=== PATIENT | female | born 1990 | race Hispanic/Latino ===

== ENCOUNTER 2016-05-09 22:33 | Emergency (ER) | payer SELFPAY ==
[~2016-05-09] VITALS: Ht 149.9 cm; Wt 46.2 kg
[~2016-05-09 22:33] MED LIST: BACTRIM DS1 TAB PO; CIPROFLOXACN500 MG PO
[2016-05-10] MEDS ORDERED: STERAPRED DS10 MG PO (00:52)
[2016-05-10 01:22] VITALS: BP 108/66
== END 2016-05-10 01:29 | disposition home or self-care (01) | DRG 607 ==
LOC: ED 22:33
DX: L50.0 Allergic urticaria (principal); Z87.440 Personal history of urinary (tract) infections

== ENCOUNTER 2016-06-23 08:27 | Observation (INO) | payer SELFPAY ==
[~2016-06-23] VITALS: Ht 149.9 cm; Wt 45.0 kg
[~2016-06-23 08:27] MED LIST changes: +STERAPRED DS10 MG PO
[2016-06-23 09:10] LABS: URINE BILIRUBIN - DIPSTICK NEGATIVE (NEGATIVE); URINE BLOOD DIPSTICK SMALL (NEGATIVE); URINE CLARITY CLEAR; URINE COLOR YELLOW; URINE GLUCOSE - DIPSTICK NEGATIVE (NEGATIVE); URINE KETONE >=80 mg/dL (NEGATIVE); URINE LEUK ESTERASE NEGATIVE (NEGATIVE); URINE NITRITE - DIPSTICK NEGATIVE (Negative); URINE PH 5.5 (4.5-8.0); URINE PROTEIN - DIPSTICK 30 mg/dL (NEG-TRACE); URINE SPECIFIC GRAVITY >=1.030
[2016-06-23 09:19] LABS: HEMATOCRIT 42.1 % (37.0-47.0); HEMOGLOBIN 14.4 g/dl (12.0-16.0); IMMATURE GRANULOCYTES 0.4 % (0.0-1.0); MEAN CELL VOLUME 91.5 fL CALC (80.0-100.0); MEAN CORPUSCULAR HGB 31.3 pG CALC (26.0-32.0); MEAN CORPUSCULAR HGB CONC 34.2 g/L CALC (32.0-36.0); NEUT# 7.69 thou/uL (2.00-7.15); RED BLOOD COUNT 4.6 mill/uL (4.20-5.60)
[2016-06-23 09:26] LABS: ALKALINE PHOSPHATASE 68 u/l (38-126); ANION GAP 25 (6-22 (CALC)); BILIRUBIN, TOTAL 1.1 mg/dL (0.0-1.4); BUN 12 mg/dL (7-17); BUN/CREATININE RATIO 24 (12-20 (CALC)); CALCIUM 9.4 mg/dL (8.4-10.2); CARBON DIOXIDE 14 mmol/l (22-30); CHLORIDE 101 mmol/l (95-108); CREATININE 0.5 mg/dL (0.5-1.0); GFR > 60 ML/MIN (>=60 (CALC)); GFR FOR AFR.AMER. > 60 ML/MIN (>=60 (CALC)); GLUCOSE 122 mg/dL (65-105); POTASSIUM 4.1 mmol/l (3.5-5.1); SGOT/AST 20 u/l (14-36); SGPT/ALT 21 u/l (9-52); SODIUM 136 mmol/l (137-146); TOTAL PROTEIN 8.5 g/dL (6.3-8.2)
[2016-06-23 09:33] LABS: URINE SQUAMOUS EPITHELIAL CELL FEW EPI/hpf (0-FEW)
[2016-06-23 10:17] LABS: BETA-HCG, QUANT(RESULT NUMBER) 21785 mIU/mL
[2016-06-23 11:20] LABS: ANION GAP 22 (6-22 (CALC)); BUN 12 mg/dL (7-17); BUN/CREATININE RATIO 22 (12-20 (CALC)); CALCIUM 9.4 mg/dL (8.4-10.2); CARBON DIOXIDE 16 mmol/l (22-30); CHLORIDE 100 mmol/l (95-108); CREATININE 0.5 mg/dL (0.5-1.0); GFR > 60 ML/MIN (>=60 (CALC)); GFR FOR AFR.AMER. > 60 ML/MIN (>=60 (CALC)); GLUCOSE 104 mg/dL (65-105); SODIUM 134 mmol/l (137-146)
[2016-06-23 14:00] LABS: ANION GAP 16 (6-22 (CALC)); BUN 8 mg/dL (7-17); BUN/CREATININE RATIO 18 (12-20 (CALC)); CALCIUM 8.2 mg/dL (8.4-10.2); CARBON DIOXIDE 17 mmol/l (22-30); CHLORIDE 106 mmol/l (95-108); CREATININE 0.4 mg/dL (0.5-1.0); GFR > 60 ML/MIN (>=60 (CALC)); GFR FOR AFR.AMER. > 60 ML/MIN (>=60 (CALC)); GLUCOSE 76 mg/dL (65-105); POTASSIUM 3.8 mmol/l (3.5-5.1); SODIUM 135 mmol/l (137-146)
[2016-06-23 15:17] VITALS: BP 122/78
[2016-06-23 19:15] VITALS: BP 109/67
[2016-06-24 04:21] VITALS: BP 100/64
[2016-06-24 07:20] LABS: ANION GAP 13 (6-22 (CALC)); BUN 3 mg/dL (7-17); BUN/CREATININE RATIO 8 (12-20 (CALC)); CALCIUM 8.3 mg/dL (8.4-10.2); CARBON DIOXIDE 20 mmol/l (22-30); CHLORIDE 106 mmol/l (95-108); CREATININE 0.4 mg/dL (0.5-1.0); GFR > 60 ML/MIN (>=60 (CALC)); GFR FOR AFR.AMER. > 60 ML/MIN (>=60 (CALC)); GLUCOSE 70 mg/dL (65-105); POTASSIUM 3.3 mmol/l (3.5-5.1); SODIUM 135 mmol/l (137-146)
[2016-06-24 08:30] VITALS: BP 103/57
[2016-06-24] MEDS ORDERED: ZOFRAN4 MG/TAB PO (11:06)
== END 2016-06-24 11:50 | disposition home or self-care (01) | DRG 781 ==
LOC: ENPENDDIS → ED 08:27 → ED-I 14:28 → ED 14:38 → MS2 14:39
PROVIDERS: Emergency Medicine; ADMIT Internal Medicine; ATTEND Internal Medicine
DX: O21.1 Hyperemesis gravidarum with metabolic disturbance (principal); Z87.440 Personal history of urinary (tract) infections; Z3A.01 Less than 8 weeks gestation of pregnancy
CPT/HCPCS: G0378

== ENCOUNTER 2016-06-26 22:46 | Emergency (ER) | payer SELFPAY ==
[~2016-06-26] VITALS: Ht 149.9 cm; Wt 43.6 kg
[~2016-06-26 22:46] MED LIST changes: +ZOFRAN4 MG/TAB PO
[2016-06-27 01:17] LABS: HEMATOCRIT 38.7 % (37.0-47.0); HEMOGLOBIN 14.1 g/dl (12.0-16.0); IMMATURE GRANULOCYTES 0.4 % (0.0-1.0); MEAN CELL VOLUME 88.2 fL CALC (80.0-100.0); MEAN CORPUSCULAR HGB 32.1 pG CALC (26.0-32.0); MEAN CORPUSCULAR HGB CONC 36.4 g/L CALC (32.0-36.0); NEUT# 5.86 thou/uL (2.00-7.15); RED BLOOD COUNT 4.39 mill/uL (4.20-5.60)
[2016-06-27 01:33] LABS: ALBUMIN 4.7 g/dL (3.2-5.0); ALKALINE PHOSPHATASE 55 u/l (38-126); AMYLASE < 30 u/l (30-110); ANION GAP 18 (6-22 (CALC)); BILIRUBIN, TOTAL 0.9 mg/dL (0.0-1.4); BUN 10 mg/dL (7-17); BUN/CREATININE RATIO 21 (12-20 (CALC)); CALCIUM 9.7 mg/dL (8.4-10.2); CARBON DIOXIDE 24 mmol/l (22-30); CHLORIDE 101 mmol/l (95-108); CREATININE 0.5 mg/dL (0.5-1.0); GFR > 60 ML/MIN (>=60 (CALC)); GFR FOR AFR.AMER. > 60 ML/MIN (>=60 (CALC)); GLUCOSE 91 mg/dL (65-105); LIPASE 30 u/l (23-300); POTASSIUM 3.4 mmol/l (3.5-5.1); SGOT/AST 20 u/l (14-36); SGPT/ALT 26 u/l (9-52); SODIUM 140 mmol/l (137-146); TOTAL PROTEIN 7.5 g/dL (6.3-8.2)
[2016-06-27 02:38] LABS: URINE BILIRUBIN - DIPSTICK NEGATIVE (NEGATIVE); URINE BLOOD DIPSTICK NEGATIVE (NEGATIVE); URINE CLARITY CLEAR; URINE COLOR YELLOW; URINE GLUCOSE - DIPSTICK NEGATIVE (NEGATIVE); URINE KETONE >=80 mg/dL (NEGATIVE); URINE LEUK ESTERASE NEGATIVE (NEGATIVE); URINE NITRITE - DIPSTICK NEGATIVE (Negative); URINE PROTEIN - DIPSTICK NEGATIVE (NEG-TRACE); URINE SPECIFIC GRAVITY 1.025
[2016-06-27] MEDS ORDERED: PHENERGAN25 MG/TAB PO (02:38)
[2016-06-27 02:44] VITALS: BP 111/97
== END 2016-06-27 02:45 | disposition home or self-care (01) | DRG 781 ==
LOC: ED 22:46
PROVIDERS: Emergency Medicine
DX: O21.9 Vomiting of pregnancy, unspecified (principal); Z3A.01 Less than 8 weeks gestation of pregnancy

== ENCOUNTER 2017-02-11 15:54 | Inpatient (IN) | payer BC, OTHER ==
[~2017-02-11] VITALS: Ht 149.9 cm; Wt 59.0 kg
[2017-02-11] VITALS (11 sets, daily range): BP systolic 108–126; BP diastolic 56–91
[~2017-02-11 15:54] MED LIST changes: +FERR SULFATE325 MG PO; +PHENERGAN25 MG/TAB PO; +PRE-NATAL PO
--- NOTE | 2017-02-11 16:00 | NUR ---
PT IS G1PO WITH MARIO OF 02/18/17. PT C/O OF CONTRACTIONS THAT GOT STRONGER AT 12PM TODAY. PAIN IS 4/10 IN LOWER ABDOMEN AND BACK. PT DENIES BLEEDING OR FLUIDS LEAKING. UA/DOA OBTAINED.
[2017-02-11 16:13] LABS: URINE BILIRUBIN - DIPSTICK NEGATIVE (NEGATIVE); URINE BLOOD DIPSTICK NEGATIVE (NEGATIVE); URINE COLOR YELLOW; URINE GLUCOSE - DIPSTICK NEGATIVE (NEGATIVE); URINE KETONE NEGATIVE (NEGATIVE); URINE LEUK ESTERASE NEGATIVE (Negative); URINE NITRITE - DIPSTICK NEGATIVE (Negative); URINE PROTEIN - DIPSTICK NEGATIVE (NEG-TRACE); URINE UROBILINOGEN - DIPSTICK 0.2 E.U./dL (0.2)
--- NOTE | 2017-02-11 16:30 | NUR ---
SVE DONE BY MYSELF. UNSURE OF FINDINGS. SVE CONFIRMED BY [facility] RN. CX 1-2CM DILATED, APPROXIMATELY 80% EFFACED, VTX AT STATION -1. MEMBRANES INTACT. NO BLOOD ON GLOVED FINGER. MD TO BE NOTIFIED.
[2017-02-11 16:32] LABS: BARBITURATES NEGATIVE (NEGATIVE); COCAINE NEGATIVE (NEGATIVE); METHADONE NEGATIVE (NEGATIVE); OXCYCODONE NEGATIVE (NEGATIVE); TETRAHYDROCANNABIONOL NEGATIVE (NEGATIVE); TRICYLIC ANTIDEPRESSANTS NEGATIVE (NEGATIVE)
--- NOTE | 2017-02-11 16:45 | NUR ---
DR MATOS NOTIFIED VIA CELLPHONE OF THE ABOVE. WILL COME IN TO SEE PATIENT. PATIENT MADE AWARE OF PLAN OF CARE.
[2017-02-11 17:13] LABS: URINE CLARITY CLEAR
--- NOTE | 2017-02-11 17:15 | NUR ---
DR. MATOS AT BEDSIDE. SVE DONE BY . MD DISCUSSED PLAN OF CARE WITH PT AND PT VERBALIZED UNDERSTANDING. PT MOM IN ROOM. PT DENIES ANY NEEDS AT THIS TIME.
[2017-02-11 18:28] LABS: ALBUMIN 3.8 g/dL (3.2-5.0); ALKALINE PHOSPHATASE 281 u/l (38-126); ANION GAP 16 (6-22 (CALC)); BILIRUBIN, TOTAL 0.2 mg/dL (0.0-1.4); BUN 11 mg/dL (7-17); BUN/CREATININE RATIO 21 (12-20 (CALC)); CALCIUM 9.7 mg/dL (8.4-10.2); CARBON DIOXIDE 22 mmol/l (22-30); CHLORIDE 104 mmol/l (95-108); CREATININE 0.5 mg/dL (0.5-1.0); GFR > 60 ML/MIN (>=60 (CALC)); GFR FOR AFR.AMER. > 60 ML/MIN (>=60 (CALC)); GLUCOSE 85 mg/dL (65-105); POTASSIUM 4.1 mmol/l (3.5-5.1); SGOT/AST 25 u/l (14-36); SGPT/ALT 22 u/l (9-52); SODIUM 138 mmol/l (137-146); TOTAL PROTEIN 6.7 g/dL (6.3-8.2)
--- NOTE | 2017-02-11 18:28 | NUR ---
ENCOURAGE PT TO AMBULATE IN THE HALLWAYS AND PT STATED MAYBE LATER. PT STATED PAIN IS 5/10. PT DENIES ANY NEEDS AT THIS TIME. REPORT READY FOR ONCOMING SHIFT.
--- NOTE | 2017-02-11 19:00 | NUR ---
REPORT RECIEVED FROM Rachna WHEELER RN. PATIENT SITTING UP IN BED AT THIS TIME, ORDERED BOLUS CONTINUES TO INFUSE. CALL LIGHT WITHIN REACH, PATIENT DENIES ANY CURRENT NEEDS.
[2017-02-11 19:01] LABS: HEMATOCRIT 36.8 % (37.0-47.0); HEMOGLOBIN 12.8 g/dl (12.0-16.0); IMMATURE GRANULOCYTES 0.3 % (0.0-1.0); MEAN CELL VOLUME 92.7 fL CALC (80.0-100.0); MEAN CORPUSCULAR HGB 32.2 pG CALC (26.0-32.0); MEAN CORPUSCULAR HGB CONC 34.8 g/L CALC (32.0-36.0); NEUT# 6.2 thou/uL (2.00-7.15); RED BLOOD COUNT 3.97 mill/uL (4.20-5.60); RED CELL DISTRI WIDTH 13.4 % (11.5-15.5)
--- NOTE | 2017-02-11 19:24 | NUR ---
THIS RN SUMMONED BY PATIENT TO ROOM, UP TO BATHROOM INDEPENDENTLY AT THIS TIME.
--- NOTE | 2017-02-11 20:20 | NUR ---
PATIENT MOTHER PRESENT IN TRIAGE ROOM AT THIS TIME FOR SUPPORT. PATIENT UP WITH MINIMAL ASSIST TO ROCKING CHAIR AT BEDSIDE, PATIENT ROCKING THROUGH CONTRACTIONS, MATERNAL HR NOTED DURING VERIFIED WITH PULSE OX.
--- NOTE | 2017-02-11 20:30 | NUR ---
DR MATOS PRESENT ON UNIT TO CHECK ON PATIENT. UPDATED ON MOST RECENT SVE, EFM AND PATIENT VS. ORDERS RECEIVED FOR VISTARIL 25 MG PO X 1, INTERMITTENT MONITORING AND OK FOR PAIN MEDICATION. PATIENT CONTINUES TO DENY ANY MEDICATION INTERVENTIONS FOR REPORTED PAIN. GIVEN WARM COMPRESS FOR COMFORT. WILL CONTINUE TO MONITOR.
--- NOTE | 2017-02-11 20:53 | NUR ---
PATIENT UP TO BATHROOM AT THIS TIME INDEPENDENTLY TO USE THE RESTROOM.
--- NOTE | 2017-02-11 21:40 | NUR ---
FATHER OF BABY NOW PRESENT AT BEDSIDE FOR SUPPORT.
--- NOTE | 2017-02-11 23:36 | NUR ---
PATIENT TURNS TO LEFT SIDE AT THIS TIME, REPORTING PAIN LEVEL IS STILL 7/10 AND WOULD LIKE PRN MEDICATION FOR RELIEF. MOTHER AND FATHER OF BABY REMAIN AT BEDSIDE FOR SUPPORT. PATIENT ENCOURAGED TO DEEP BREATHE WELL.
[2017-02-12] VITALS (47 sets, daily range): BP systolic 106–140; BP diastolic 55–83
--- NOTE | 2017-02-12 02:02 | NUR ---
PATIENT REPORTING NUBAIN WAS EFFECTIVE FOR PAIN RELIEF. REQUESTING ASSITANCE TO RESTROOM.
--- NOTE | 2017-02-12 05:26 | NUR ---
DR MATOS UPDATED REGARDING PATIENT LAST SVE, EFM AND SPACING OF CONTRACTIONS. STATES WILL BE IN SHORTLY AND WILL COMPLETE THE NEXT SVE AT THAT TIME. WILL CONTINUE TO MONITOR.
--- NOTE | 2017-02-12 06:00 | NUR ---
PATIENT REPORTING SOME "PRESSURE" RATING THE DISCOMFORT 8/10. SVE COMPLETED WITH A RESULT OF 4100/0, DR MATOS PRESENT AT NURSE'S STATION, UPDATED ON PATIENT REPORT OF PRESSURE, SVE, AND SROM OF 0600 SMALL AMT OF CLEAR FLUID. NO NEW ORDERS RECEIVED.
--- NOTE | 2017-02-12 06:30 | NUR ---
DR WALTERSCU IN TO SEE PATIENT SHE IS REQUESTING EPIDURAL FOR PAIN MANAGEMENT. DISCUSSES WITH PATIENT WOULD LIKE HER TO BE 5-6CM BEFORE EPIDURAL PLACEMENT. PATIENT VERBALIZES UNDERSTANDING, DR EVANS TO BE BACK TO REEVALUATE PATIENT AT 0800, WILL RECIEVE PAUL FOR COMFORT AT THIS TIME.
--- NOTE | 2017-02-12 07:00 | NUR ---
0650: REPORT RECEIVED BY KATHARINE FALL. 0700: PT IS SLEEPING IN BED ON HER LEFT SIDE WITH NO S/S OF DISTRESS NOTED. MOM IN ROOM.
--- NOTE | 2017-02-12 07:56 | NUR ---
PT IS RESTING IN LEFT SIDE. ENCOURAGE PT TO GET OOB TO VOID. PT STATED SHE DID NOT HAVE TO VOID AT THIS TIME. PALPATED ABDOMEN AND CONTRACTION FELT MODERATE. PT STATED PAIN IS A 9/10 IN LOWER ABDOMEN. PT DENIES ANY NEEDS AT THIS TIME. PT MOM IN ROOM.
--- NOTE | 2017-02-12 09:15 | NUR ---
0915: PT STATED THAT SHE IS HAVING PRESURE. SVE DONE . PT REFUSED PAIN MEDICATION. PT STATED THAT CONSTRACTIONS WOULD SLOW DOWN. PT STATED THAT SHE WANTED TO WAIT. PT MOM IN ROOM FOR SUPPORT.
--- NOTE | 2017-02-12 09:20 | NUR ---
PT IS IN HER RIGHT SIDE. PT TAKES DEEP BREATHS DURING CONTRACTIONS AND PT MOM RUBS PT BACK. PT DENIES ANY NEEDS AT THIS TIME.
--- NOTE | 2017-02-12 09:34 | NUR ---
DR. MATOS AT BEDSIDE. SVE DONE BY /-1-0.
--- NOTE | 2017-02-12 10:35 | NUR ---
1031: PT OOB TO VOID. PT HAVING NORMAL SHOW AND LEAKING CLEAR FLUIDS. 1035: PT SITTING IN BIRTHING BALL ROCKING SIDE TO SIDE. PT MOM IN ROOM FOR SUPPORT. ICE CHIPS GIVEN. PT DENIES ANY OTHER NEEDS.
--- NOTE | 2017-02-12 11:16 | NUR ---
1100: PT IN THE BIRTHING BALL AND MOVING SIDE TO SIDE. FHR NOT TRACNING DUE TO PT MOVING. 1116: PT BACK IN BED TO BE ABLE TO TRACE FHR. PT DENIES ANY NEEDS AT THIS TIME. PT MOM AND S/O IN ROOM.
--- NOTE | 2017-02-12 12:38 | NUR ---
1230: PT OOB TO VOID. 1238: AT BEDSIDE. SVE DONE BY . PT TAKES DEEP BREATHS DURING CONTRACTIONS. PT STATED THAT PAIN IS 8/10 IN LOWER ABDOMEN.
--- NOTE | 2017-02-12 13:12 | NUR ---
PT AMBULATING IN THE HALLWAY WITH PT MOM AT SIDE. PT STOPS AND TAKES DEEP BREATHS WHEN SHE HAS A CONTRACTION.
--- NOTE | 2017-02-12 13:32 | NUR ---
PT BACK IN ROOM FROM WALKING. EFM APPLIED. PT IS ON RIGHT SIDE. PT DENIES ANY NEEDS AT THIS TIME.
--- NOTE | 2017-02-12 13:45 | NUR ---
DR. ALVAREZECU AT BED SIDE. SVE DONE BY . TOLD PT THAT SHE CAN GET THE EPIDURAL AND PT VERBALIZED UNDERSTANDING.
--- NOTE | 2017-02-12 14:10 | NUR ---
1400: PT OOB BED TO VOID. PT STATED UNABLE TO VOID AT THIS TIME. 1410: PT MOVED TO BR#2 VIA WHEELCHAIR. PT MOM AT SIDE.
--- NOTE | 2017-02-12 15:18 | NUR ---
1450: GAYLE HERNANDEZ IN ROOM. 1457:TIME OUT 1511: SKIN PREP 1512: NUMBING 1513: CATH IN AND TEST BOLUS 1518: BOLUS DOSE
--- NOTE | 2017-02-12 16:05 | NUR ---
SVE DONE BY DR. FISCHER .
--- NOTE | 2017-02-12 18:21 | NUR ---
PT IS RESTING IN BED. PT STATED THAT SHE DOES NOT HAVE PAIN AT THIS TIME. ICE CHIPS GIVEN. PT DENIES ANY NEEDS AT THIS TIME. PT MOM IN ROOM.
--- NOTE | 2017-02-12 18:30 | NUR ---
A BOLUS OF 300ML GIVEN PER MD ODERS FOR FHR TACH.
--- NOTE | 2017-02-12 18:50 | NUR ---
REPORT GIVEN TO KATHARINE FLOYD.
[2017-02-13] VITALS (8 sets, daily range): BP systolic 108–126; BP diastolic 63–72
[2017-02-13 05:40] LABS: HEMATOCRIT 29.7 % (37.0-47.0); HEMOGLOBIN 10.3 g/dl (12.0-16.0); IMMATURE GRANULOCYTES 0.9 % (0.0-1.0); MEAN CELL VOLUME 93.7 fL CALC (80.0-100.0); MEAN CORPUSCULAR HGB 32.5 pG CALC (26.0-32.0); MEAN CORPUSCULAR HGB CONC 34.7 g/L CALC (32.0-36.0); NEUT# 17.76 thou/uL (2.00-7.15); RED BLOOD COUNT 3.17 mill/uL (4.20-5.60); RED CELL DISTRI WIDTH 13.7 % (11.5-15.5)
--- NOTE | 2017-02-13 07:30 | NUR ---
PT LAYING IN BED, HOLDING , POSITIVE BONDING. VS AND ASSESSMENT DONE, STABLE. DENIES ANY PAIN. DISCUSSED PLAN OF CARE WITH PT, PT VERBALIZED UNDERSTANDING AND DENIES ANY NEEDS.
--- NOTE | 2017-02-13 10:04 | NUR ---
PT MEDICATED WITH MOTRIN FOR CRAMPING PAIN. VISITING WITH FAMILY. DENIES ANY OTHER NEEDS.
--- NOTE | 2017-02-13 14:00 | NUR ---
PT ENCOURAGED TO SHOWER AT THIS TIME, FAMILY AT BEDSIDE. SALINE LOCK COVERED FOR SHOWER.
--- NOTE | 2017-02-13 16:15 | NUR ---
PT SITTING UP IN BED, CARING FOR INFANT, VS DONE, STABLE, DENIES ANY PAIN. SALINE LOCK REMOVED PER PT'S REQUEST, TIP INTACT, 2X2 APPLIED.
--- NOTE | 2017-02-13 17:47 | NUR ---
PT SLEEPING, RESPIRATIONS UNLABORED. INFANT SLEEPING IN OPEN CRIB.
[2017-02-14 04:12] VITALS: BP 113/67
--- NOTE | 2017-02-14 06:05 | NUR ---
PT SLEEPING QUIETLY IN BED, NO APPARENT DISTRESS NOTED.
[2017-02-14 08:05] VITALS: BP 126/85
--- NOTE | 2017-02-14 08:21 | NUR ---
PT SITTING UP, HOLDING INFANT, POSITIVE BONDING. VS AND ASSESSMENT DONE, STABLE. MEDICATED WITH MOTRIN FOR CRAMPING PAIN. DISCUSSED PLAN OF CARE WITH PT, INCLUDING [employer] VIDEOS AND EDUCATION PAPERWORK FOR PT TO START READING. PT VERBALIZED UNDERSTANDING. DENIES ANY OTHER NEEDS AT THIS TIME.
--- NOTE | 2017-02-14 13:42 | NUR ---
PT WALKING IN THE ROOM, DENIES ANY PAIN OR NEEDS AT THIS TIME.
--- NOTE | 2017-02-14 14:53 | NUR ---
PT HAS WATCHED [employer] EDUCATIONAL VIDEOS. DISCHARGE INSTRUCTIONS GIVEN TO PT REGARDING HER CARE AND CARE OF , IN PREPARATION TO GOING HOME TOMORROW. ALL QUESTIONS ANSWERED. PT VERBALIZED UNDERSTANDING.
[2017-02-14 17:13] VITALS: BP 111/66
--- NOTE | 2017-02-14 17:16 | NUR ---
VS DONE, STABLE. MEDICATED WITH MOTRIN FOR CRAMPING PAIN. DENIES ANY OTHER NEEDS.
[2017-02-14 19:10] VITALS: BP 111/67
--- NOTE | 2017-02-14 19:10 | NUR ---
PT CARE ASSUMED, PT AWAKE AND ALERT- RESTING IN BED, DENIES ANY CONCERNS AT THIS TIME, ASSESSMENT DONE- ALL WNL, VSS, PT DENIES ANY NEEDS, PT ENCOURAGED TO CALL NURSE FOR ANY NEEDS OR CONCERNS- PT VERBALIZES UNDERSTANDING.
--- NOTE | 2017-02-15 06:05 | NUR ---
PT SLEEPING QUIETLY IN BED, NO DISTRESS NOTED AT THIS TIME.
[2017-02-15 07:10] VITALS: BP 121/86
--- NOTE | 2017-02-15 07:10 | NUR ---
PT SITTING UP IN BED, INFANT. VS AND ASSESSMENT DONE, WILL MEDICATE WITH MOTRIN FOR CRAMPING PAIN. DISCUSSED PLAN OF CARE WITH PT, INCLUDING DISCHARGE TODAY. PT VERBALIZED UNDERSTANDING.
[2017-02-15] MEDS ORDERED: IBUPROFEN600 MG PO (09:26)
[2017-02-15] MEDS ORDERED: LORTAB 7.57.5 MG PO (09:36)
--- NOTE | 2017-02-15 11:00 | NUR ---
DISCHARGE TEACHING DONE WITH PT, INCLUDING WHEN TO FOLLOW UP WITH MD. RX FOR MOTRIN AND IRON GIVEN TO PT. ALL QUESTIONS ANSWERED. PT VERBALIZED UNDERSTANDING.
--- NOTE | 2017-02-15 11:20 | NUR ---
PT DISCHARGED HOME, IN STABLE CONDITION, VIA WHEELCHAIR, WITH FAMILY MEMBER.
== END 2017-02-15 11:20 | disposition home or self-care (01) | DRG 775 ==
LOC: OBOP 15:54 → OB 16:19 → EDSTATUS 16:23 → OBOP 17:24 → OB 17:25
PROC: 10E0XZZ Delivery of Products of Conception, External Approach (ICD-10-PCS; principal; 2017-02-12)
DX: O99.824 Streptococcus B carrier state complicating childbirth (principal); O41.1230 Chorioamnionitis, third trimester, not applicable or unspecified; D62 Acute posthemorrhagic anemia; O63.9 Long labor, unspecified; O90.81 Anemia of the puerperium; Z3A.38 38 weeks gestation of pregnancy; Z37.0 Single live birth
CPT/HCPCS: J2540

== ENCOUNTER 2018-08-07 01:43 | Emergency (ER) | payer SELFPAY ==
[~2018-08-07] VITALS: Ht 149.9 cm; Wt 60.0 kg
[~2018-08-07 01:43] MED LIST changes: +IBUPROFEN600 MG PO; +LORTAB 7.57.5 MG PO
[2018-08-07] MEDS ORDERED: AMOXICILLIN500 MG PO (02:09)
[2018-08-07] MEDS ORDERED: PERCOCET 5/325M1 TAB PO (02:09)
[2018-08-07 02:11] VITALS: BP 101/68
== END 2018-08-07 02:19 | disposition home or self-care (01) | DRG 153 ==
LOC: ED 01:43
DX: J02.9 Acute pharyngitis, unspecified (principal); H66.92 Otitis media, unspecified, left ear